=== PATIENT | female | born 2005 | race African-American/Black ===

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

== ENCOUNTER 2025-07-04 09:10 | Emergency (ER) | payer BC, SELFPAY ==
[2025-07-04] MEDS ORDERED: Dexamethasone 10 MG/ML VIAL ONE (10:41)
[2025-07-04 14:09] LABS: Chlamydia by PCR, Vaginal Swab DETECTED (NotDetected); GC by PCR, Vaginal Swab Not Detected (NotDetected); Tric.vaginalis PCR,Vaginal Sw Not Detected (NotDetected)
== END 2025-07-04 10:43 | disposition home or self-care (01) ==
LOC: ERS 09:10
DX: J02.9 Acute pharyngitis, unspecified (principal); Z11.3 Encounter for screening for infections with a predominantly sexual mode of transmission
CPT/HCPCS: 87081; 87430; 87491; 87591; 87661; 99283; J1100